=== PATIENT | female | born 1950 | race Caucasian/White ===

== ENCOUNTER 2025-06-04 13:41 | Inpatient (IN) | payer MEDICARE ==
[2025-06-02 12:16] LABS: MEAN PLATELET VOLUME 8.7 FL (7.4-10.4); PRE OP HEMATOCRIT 46.6 % (35.0-45.0); PRE OP HEMOGLOBIN 14.6 g/dL (12.0-16.0); PRE OP PLATELET COUNT 365 X10'3 (140-440); PRE OP WHITE BLOOD COUNT 9.4 10'3 (4.8-10.8); RED CELL DISTRIBUTION WIDTH 25.0 % (11.5-14.5)
[2025-06-02 12:31] LABS: CREATININE 1.72 MG/DL (0.40-0.90); PRE OP ALT 18 U/L (30-65); PRE OP ANION GAP 9 (8-16); PRE OP AST 35 U/L (10-37); PRE OP BILIRUB, TOTAL 0.7 MG/DL (0.0-1.0); PRE OP GLUCOSE 111 MG/DL (70-104); PRE OP POTASSIUM 4.2 MMOL/L (3.4-5.1); PRE OP SODIUM 141 MMOL/L (135-145); TOTAL CARBON DIOXIDE 29.1 MMOL/L (24-32); eGFR 29 ML/MIN
[~2025-06-04] VITALS: Ht 175.3 cm; Wt 101.4 kg
[2025-06-04] MEDS: ceFAZolin 2gm/dext,iso 50mL 50 ML IV ONE (05:30)
[2025-06-04] MEDS: VANCOMYCIN/H2O 1.5g/300mL PB 300 ML IV ONE (05:30)
[~2025-06-04 13:41] MED LIST: ATOR10TA87 PO; CHOL200080 PO; DOXY-224 PO; FENO145T38 PO; FLUT1BLS10 IH; FURO-150 PO; HYDR-3973 PO; INSU100I52 SQ; LACT1CAP75 PO; METF-900 PO; METO-395 PO; MIDO5TAB4 PO; NALO0.4D3 NAS; RIVA15TA PO; SERT25TA PO
[2025-06-04 13:53] VITALS: BP 132/64; PULSE 90; RESP 17; TEMP 97.8; O2SAT 95
[2025-06-04] MEDS: ringers solution, lacted 1,000 ML IV SCH (14:42)
[2025-06-04 14:45] LABS: ISTAT ANION GAP 9.0 (8-12); ISTAT BUN 20.0 mg/dL (7-18); ISTAT CL 100.0 mmol/L (99-107); ISTAT CREATININE 1.1 mg/dL (0.6-1.1); ISTAT GLUCOSE 65.0 mg/dL (70-104); ISTAT HGB 16.3 g/dl (12.0-16.0); ISTAT Hct 48.0 %PCV (35-45); ISTAT IONIZED CALCIUM 1.16 mmol/L (1.03-1.32); ISTAT K 3.8 mmol/L (3.5-5.1); ISTAT NA 139.0 mmol/L (135-145); ISTAT TOTAL CO2 30.0 mmol/L (24-32); ISTAT eGFR 48.0 ML/MIN; POC BUN/CREATININE RATIO 18.2 (6.6-38.0)
[2025-06-04] MEDS ORDERED: vancomycin 1,000mg inj ONE (15:28)
[2025-06-04] MEDS ORDERED: vancomycin inj 1,000 MG in normal saline 250ml IV soln 250 ML IV ONE (17:00)
[2025-06-04] MEDS ORDERED: magnesium sulf-water 4G/100mL 100 ML IV PRN (17:00)
[2025-06-04] MEDS ORDERED: potassium Cl 40MEQ/1/2NS 520ml 520 ML IV PRN (17:00)
[2025-06-04] MEDS ORDERED: HYDROmorphone inj. 0.5 MG/0.5 ML DISP.SYRIN IV PRN (17:00)
[2025-06-04] MEDS ORDERED: bisacodyl 10mg suppository rectal RC PRN (17:00)
[2025-06-04] MEDS ORDERED: HYDROcodone/acetaminophen 5mg/325mg tablet PO PRN (17:00)
[2025-06-04] MEDS ORDERED: DEXTROSE 15 GM of carb/4 tabs (each vial/BOTTLE has 4 tablets) PO PRN ×2 (17:00)
[2025-06-04] MEDS ORDERED: potassium Cl 20 mEq SR tablet PO PRN ×2 (17:00)
[2025-06-04] MEDS ORDERED: magnesium sulf-water 2g/50mL 50 ML IV PRN (17:00)
[2025-06-04] MEDS ORDERED: ondansetron/PF 4mg/2ml inj IV PRN (17:00)
[2025-06-04] MEDS ORDERED: glucagon, human recombinant 1mg kit SUBCUT PRN (17:00)
[2025-06-04] MEDS ORDERED: dextrose 50%-water 50ml dispensing syringe IV PRN ×2 (17:00)
--- NOTE | 2025-06-04 17:20 | HISTORY AND PHYSICAL ---
History & Physical Providers to CC ~ History of Present Illness Reason for Admit\Complaint: Right hip infection History of Present Illness This is a 75-year-old female who had a proximally one year history of intermittent infections of the right hip- three years ago she has a total hip arthroplasty and since then she has had multiple revisions she was hospitalized here the end of March in the beginning of April with a a hip infection and had a extensive debridement decompression of the abscess and removal of infected hip arthroplasty both femoral and acetabular components and antibiotic spacers were placed. The patient currently is being admitted as per request of orthopedic surgeon Dr. Edvin singh for a revision and removal and replacement of the antibiotic spacers. The patient is on dialysis Monday. Monday, Monday I did communicate with on-call clinical exercise physiologist Dr. phillip and to coordinate when the patient will get their Monday dialysis treatments. The patient has atrial fibrillation and takes Xarelto for DVT and stroke prophylaxis which will be held for upcoming surgery on Monday. The patient has no acute complaints Allergies: Coded Allergies: procaine (Verified Allergy, Intermediate, 06/03/25) Sulfa (Sulfonamide Antibiotics) (Verified Allergy, Unknown, 06/03/25) avocado (Unverified Allergy, Unknown, 03/27/25) allergy per pt codeine (Unverified Allergy, Unknown, 03/25/25) grape (Unverified Allergy, Unknown, 03/27/25) rash per pt Uncoded Allergies: NOVACAINE (Allergy, Intermediate, 06/03/25) Home Medications Home Medications Active Reported Probiotic (Lactobacillus Combo No.10) 20 Billion Cell Capsule 1 Tab PO DAILY Vitamin D3 (Cholecalciferol (Vitamin D3)) 50 Mcg (2000 Unit) Capsule 1 Cap PO DAILY Midodrine HCl Unknown Strength Tablet Unknown Dose PO Q8H Metoprolol Succinate Unknown Strength Tab.sr.24h Unknown Dose PO DAILY Doxycycline Hyclate 100 Mg Capsule 1 Cap PO BID Insulin Aspart Flexpen (Insulin Aspart) 100 Unit/Ml (3 Ml) Insuln.pen 0 SQ ACHS SLIDING SCALE Wixela 250-50 Inhub (Fluticasone Propion/Salmeterol) 250 Mcg-50 Mcg/Dose Blst.w.dev 1 Puff IH Q12H Zoloft* (Sertraline HCl) 25 Mg Tablet 200 Mg PO DAILY 30 Days Xarelto (Rivaroxaban) 15 Mg Tab 1 Tab PO DAILY 30 Days Naloxone HCl 0.4 Mg/Ml Syringe 1 Spr OBED Q2-3 MIN PRN 2 Days Metformin ER* (Metformin HCl) 500 Mg Tab.sr.24h 2 Tab PO DAILY 30 Days Hydrocodone-Apap 10-325 Tablet (Acetaminophen/Hydrocodone Bitart) 10mg/325mg Tablet 1 Tab PO Q12H PRN PRN 5 Days Lasix* (Furosemide) 20 Mg Tablet 1 Tab PO DAILY 30 Days Tricor* (Fenofibrate) 145 Mg Tablet 1 Tab PO DAILY 30 Days Lipitor* (Atorvastatin Calcium) 10 Mg Tablet 1 Tab PO DAILY 30 Days Past Medical History Past Medical History Scoliosis, chronic stage IV renal failure on dialysis Monday, COPD, sleep apnea, atrial fibrillation, diabetes mellitus type 2 Past Surgical History Surgical History Comment Uvuloplasty for sleep apnea, multiple right hip surgeries, right total shoulder replacement, hysterectomy Family History Family History: FH: bipolar disorder FH: heart failure FH: uterine cancer Past Social History Social History Comment Lifelong nonsmoker, does not drink alcohol or use illicit drugs. Full code status ROS ROS Except for positives in the HPI the rest of the 14 point review systems is negative Exam Vitals: Vital Signs Date Time Temp Pulse Resp B/P (MAP) Pulse Ox O2 Delivery O2 Flow Rate FiO2 06/04/25 13:53 97.8 90 17 132/64 (86) 95 Nasal Cannula 4.0 General: Gen. No acute distress alert and oriented 4 Lungs clear to ascultation bilaterally, no wheezes rales or rhonchi appreciated Heart normal sinus rhythm no murmurs rubs or clicks noted Abdomen soft nontender bowel sounds are normoactive Lower extremities no clubbing cyanosis, nor edema appreciated bilaterally Diagnostic Data Last Recorded Lab Results: 06/02/25 1206 06/02/25 1206 Advance Care Planning Advanced Care plannin - 30 Minutes Problems: (1) Septic joint Status: Acute Additional Plan # septic right hip joint Prior arthroplasty with multiple revisions an antibiotic spacer was placed Dr. Edvin singh orthopedic surgeon is taking the patient on Monday for removal of the antibiotic spacers and replacement IV vancomycin IV Rocephin. # permanent atrial fibrillation Awaiting confirmation the patient has metoprolol dose Xarelto was held since the patient is having surgery Monday # dialysis patient received dialysis today Received dialysis today I sent a text message to Dr. Phillip that the patient is here and to coordinate for dialysis on Monday # [id number] diabetes mellitus hyper and hypoglycemic protocol # COPD Currently on 3 L of oxygen DuoNeb Albuterol neb # DVT prophylaxis SQ heparin I spent a total of 17 minutes on reviewing various resuscitative measures/ ACP with the patient at the time of admission. The patient has decided on full code status Date of Service: Jun 04, 2025 Billing Provider: RICKIE PENA DO Common Visit Codes: [id number] INP/OBS CARE (HIGH) Secondary Visit Codes: [id number] CARE PLAN 30 MINUTES RICKIE PENA DO Jun 04, 2025 17:20
[2025-06-04 19:00] VITALS: BP 131/69; PULSE 89; RESP 16; TEMP 97; O2SAT 99
[2025-06-04] MEDS: INSULIN LISPRO 100 UNIT/ML INSULN.PEN MULTI-DOSE SQ SCH (19:29)
[2025-06-04] MEDS: K and/or MAG REPLACEMENT MC SCH (20:00)
[2025-06-04] MEDS: vancomycin inj. 750 MG in normal saline 250ml IV soln 250 ML IV SCH (20:44)
[2025-06-04] MEDS: heparin, porcine 5000 units/ml vial SQ SCH (20:45)
[2025-06-04] MEDS: docusate sod 100mg capsule PO SCH (20:45)
[2025-06-04 22:00] VITALS: BP 119/69; PULSE 91; RESP 16; TEMP 97.7; O2SAT 98
[2025-06-05] MEDS: HYDROcodone/acetaminophen 10/325mg tab PO PRN (05:22)
[2025-06-05 05:48] LABS: MEAN PLATELET VOLUME 8.7 FL (7.4-10.4); RED CELL DISTRIBUTION WIDTH 24.9 % (11.5-14.5)
[2025-06-05 06:00] VITALS: BP 131/81; PULSE 83; RESP 18; TEMP 97.8; O2SAT 95
[2025-06-05 06:13] LABS: CREATININE 1.25 MG/DL (0.40-0.90); TOTAL CARBON DIOXIDE 31.1 MMOL/L (24-32); eCRCL 39 ML/MIN; eGFR 42 ML/MIN
[2025-06-05] MEDS: lactobacillus rhamnosus 10,000 MMU CELLS/CAPSULE PO SCH (09:04)
[2025-06-05] MEDS: CefTRIAXone/D5W-Rocephin 1gm 50 ML IV SCH (09:04)
[2025-06-05] MEDS: cholecalciferol (vitamin D3) 1,000 unit (25mcg) tablet PO SCH (09:05)
[2025-06-05 10:00] VITALS: BP 137/70; PULSE 97; RESP 16; TEMP 98; O2SAT 95
[2025-06-05] MEDS: vancomycin/NS 1 GM ADD-VANTAGE 250 ML IV SCH (10:56)
--- NOTE | 2025-06-05 11:32 | CONSULTATION REPORT - RESIDENT ---
Consult Providers to CC Resident Creating Document: ROSHNI CROCKETT RES History of Present Illness Reason for Admit\Complaint: Hip revision surgery History of Present Illness This is a 75-year-old female with longstanding DM II diagnosed at age 36, ARIELLA on nighttime BiPAP, and multiple orthopedic procedures including right hip arthroplasty with several revisions due to recurrent dislocations. 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 She underwent extensive debridement and removal of the infected prosthesis with of antibiotic spacers. During that hospitalization, she developed acute kidney injury with progressive rise in creatinine and was initiated on hemodialysis. She is currently residing at [facility] and receives hemodialysis 3 times weekly (Monday, Monday, Monday), with her last session completed yesterday. She is scheduled for right hip revision surgery tomorrow at 9:[address] Hope and is currently on vancomycin and ceftriaxone. Prior to her recent hospitalization, she was ambulatory with a walker. She now has difficulty ambulating and requires assistance. She has urinary incontinence and uses PureWick. On evaluation today, sodium is 139, potassium 3.8, bicarbonate 31.1, creatinine 1.25 (lowest since 04/02), and hemoglobin A1c 5.8. Overnight urine output was 600 mL, with only 150 mL produced since this morning. Allergies: Coded Allergies: egg (Verified Allergy, Intermediate, hives, 06/05/25) procaine (Verified Allergy, Intermediate, 06/03/25) Sulfa (Sulfonamide Antibiotics) (Verified Allergy, Unknown, 06/03/25) avocado (Unverified Allergy, Unknown, 03/27/25) allergy per pt codeine (Unverified Allergy, Unknown, 03/25/25) grape (Unverified Allergy, Unknown, 03/27/25) rash per pt Uncoded Allergies: NOVACAINE (Allergy, Intermediate, 06/03/25) Home Medications Home Medications Active Reported Probiotic (Lactobacillus Combo No.10) 20 Billion Cell Capsule 1 Tab PO DAILY Vitamin D3 (Cholecalciferol (Vitamin D3)) 50 Mcg (2000 Unit) Capsule 1 Cap PO DAILY Midodrine HCl Unknown Strength Tablet Unknown Dose PO Q8H Metoprolol Succinate Unknown Strength Tab.sr.24h Unknown Dose PO DAILY Doxycycline Hyclate 100 Mg Capsule 1 Cap PO BID Insulin Aspart Flexpen (Insulin Aspart) 100 Unit/Ml (3 Ml) Insuln.pen 0 SQ ACHS SLIDING SCALE Wixela 250-50 Inhub (Fluticasone Propion/Salmeterol) 250 Mcg-50 Mcg/Dose Blst.w.dev 1 Puff IH Q12H Zoloft* (Sertraline HCl) 25 Mg Tablet 200 Mg PO DAILY 30 Days Xarelto (Rivaroxaban) 15 Mg Tab 1 Tab PO DAILY 30 Days Naloxone HCl 0.4 Mg/Ml Syringe 1 Spr OBED Q2-3 MIN PRN 2 Days Metformin ER* (Metformin HCl) 500 Mg Tab.sr.24h 2 Tab PO DAILY 30 Days Hydrocodone-Apap 10-325 Tablet (Acetaminophen/Hydrocodone Bitart) 10mg/325mg Tablet 1 Tab PO Q12H PRN PRN 5 Days Lasix* (Furosemide) 20 Mg Tablet 1 Tab PO DAILY 30 Days Tricor* (Fenofibrate) 145 Mg Tablet 1 Tab PO DAILY 30 Days Lipitor* (Atorvastatin Calcium) 10 Mg Tablet 1 Tab PO DAILY 30 Days Past Medical History Past Medical History Diabetes type 2, sleep apnea, COPD, atrial fibrillation Past Surgical History Surgical History Comment Multiple orthopedic surgeries onto her right hip, knee surgeries, bladder surgery Family History Family History: FH: bipolar disorder FH: heart failure FH: uterine cancer Past Social History Social History Comment Patient was born with scoliosis, difficulty ambulating. She move to [place] just prior to last [place]. Now coming from [facility]. She used to live in [place]. She ambulates using walker, never smoked, consumed alcohol, or use recreational drugs. ROS ROS As stated above in the HPI, otherwise all systems are reviewed and negative. Exam Vitals: Vital Signs Date Time Temp Pulse Resp B/P (MAP) Pulse Ox O2 Delivery O2 Flow Rate FiO2 06/05/25 10:00 98.0 97 16 137/70 (92) 95 Room Air 06/04/25 22:00 2.0 General Appearance: Elderly obese female. Alert awake and oriented HEENT: Atraumatic, normocephalic, ADEN, EOMI. Normal oropharynx, moist oral mucosa. Neck: Trachea midline. Supple, normal ROM. No JVD, bruit, lymphadenopathy or masses, or other lesions. Respiratory: No wheezing or rhonchi Cardiac: Irregular heart rhythm no murmur, rub or gallop. Normal S1 and S2. GI: No tenderness. Abdomen symmetric, nondistended, soft, normal bowel sounds x4 quadrant normoactive. No guarding, no rebound or rigidity. No hepatosplenomegaly. No masses, no bruit, no flank pain bilaterally. Extremities: Swollen, mildly tender right hip extended down to her knee. Dressing applied. Missing right 5th toe Skin: Intact, dry, warm, no rashes or petechia. Neuro: Speech is clear, alert and oriented x4. No sensory or motor deficit, DTRs normal. Cranial nerves II to XII intact. Psych: Normal affect, good eye contact, no apparent hallucination, normal speech. Diagnostic Data Last Recorded Lab Results: 06/05/2545006/05/25450 Additional Plan End-stage renal disease On hemodialysis; Monday and Monday Developed SAMIRA during prior hospitalization for septic arthritis and has since been receiving HD Creatinine today is 1.25 with reduced urine output; 600 mL overnight, 150 mL since morning Monitor for signs of volume overload or uremia postoperatively Given dialysis dependence, and a reduced urine output, careful fluid balance is critical, both prabhu and postoperatively. Preop dialysis is scheduled tomorrow at 4;30 AM. Prosthetic joint infection Underwent extensive debridement and placement of antibiotic spacer Currently on vancomycin and ceftriaxone Monitor WBC inflammatory markers, and culture Being managed by Ortho and hospitalist team Diabetes type 2 Hyperglycemia/hypoglycemia protocol in place A1c is 5.8 Urine incontinence On PureWick Monitor for skin integrity and signs of UTI Continue current management Atrial fibrillation; no RVR Xarelto withheld due to upcoming surgery Obstructive Sleep Apnea BiPAP at night. Perfusing well while breathing ambient air. DVT prophylaxis: SubQ heparin Roshni Crockett Nephrology Resident Date of Service: Jun 05, 2025 Billing Provider: RADHA MCKINNEY III, SHAMS, RES Jun 05, 2025 11:32
[2025-06-05] MEDS: ARGININE/GLUTAMINE/CALCIUM BMB (JUVEN 19.3GM PKT) 1 EACH POWD.PACK PO SCH (12:30)
--- NOTE | 2025-06-05 15:33 | PROGRESS NOTE ---
Daily Progress Note Providers to CC ~ Antibiotic Timeout Antibiotic Ordered?: Yes Subjective The patient is doing relatively well- was questioning when her next dialysis treatment is she is on Monday schedule and had dialysis yesterday. The patient is scheduled to have removal and replacement of right hip antibiotic spacer with beads with Dr. Hope at 9:00 a.m. and dialysis has been scheduled for 4:30 a.m. Objective Vital Signs Date Time Temp Pulse Resp B/P (MAP) Pulse Ox O2 Delivery O2 Flow Rate FiO2 06/05/25 10:00 98.0 97 16 137/70 (92) 95 Room Air 06/04/25 22:00 2.0 Result Diagram: 06/05/2545006/05/25 045 Gen. No acute distress alert and oriented 4 Lungs clear to ascultation bilaterally, no wheezes rales or rhonchi appreciated Heart normal sinus rhythm no murmurs rubs or clicks noted Abdomen soft nontender bowel sounds are normoactive Lower extremities no clubbing cyanosis, nor edema appreciated bilaterally Problem\Assessment\Plan Problems/Diagnosis: (1) Septic joint # septic right hip joint Prior arthroplasty with multiple revisions an antibiotic spacer was placed Dr. Edvin hope orthopedic surgeon is taking the patient to the OR tomorrow morning at 09:00 IV vancomycin IV Rocephin. # permanent atrial fibrillation Awaiting confirmation the patient has metoprolol dose Xarelto was held since the patient is having surgery Monday # dialysis patient received dialysis today Received dialysis today Evaluated by Nephrology today in his scheduled for an dialysis at 4:30 a.m. # [id number] diabetes mellitus hyper and hypoglycemic protocol # chronic COPD not in acute exacerbation # chronic respiratory failure on 3 L oxygen at baseline Currently oxygen saturation is 95% on room air DuoNeb Albuterol neb Disposition: Will likely require rehab postop surgery is scheduled tomorrow morning 06/06/2025 at 09:00 Date of Service: Jun 05, 2025 Billing Provider: RICKIE PENA DO Common Visit Codes: [id number] INP/OBS CARE(HIGH) RICKIE PENA DO Jun 05, 2025 15:32
[2025-06-05 18:30] VITALS: BP 132/70; PULSE 83; RESP 21; TEMP 97.1; O2SAT 98
[2025-06-05 22:00] VITALS: BP 132/87; PULSE 88; RESP 20; TEMP 97.3; O2SAT 94
[2025-06-06] VITALS (25 sets, daily range): BP systolic 93–130; BP diastolic 45–76; PULSE 79–114; RESP 14–25; TEMP 97.1–98.4; O2SAT 96–100
[2025-06-06] MEDS ORDERED: albumin (human) 25% 100ml IV 100 ML IV PRN (04:30)
[2025-06-06 05:05] LABS: MEAN PLATELET VOLUME 8.4 FL (7.4-10.4); RED CELL DISTRIBUTION WIDTH 25.1 % (11.5-14.5)
[2025-06-06 05:32] LABS: CREATININE 1.31 MG/DL (0.40-0.90); PHOSPHORUS 3.0 MG/DL (2.3-4.5); TOTAL CARBON DIOXIDE 29.4 MMOL/L (24-32); eCRCL 38 ML/MIN; eGFR 39 ML/MIN
[2025-06-06] MEDS: heparin 1,000 units/ml 10ml inj HE ONE ×2 (06:40→06:41)
[2025-06-06] MEDS ORDERED: vancomycin 1,000mg inj ONE ×2 (08:43→10:16)
[2025-06-06 09:33] LABS: CREATININE 0.99 MG/DL (0.40-0.90); TOTAL CARBON DIOXIDE 27.1 MMOL/L (24-32); eCRCL 50 ML/MIN; eGFR 54 ML/MIN
[2025-06-06] MEDS ORDERED: fentaNYL /PF 50mcg/ml 5ml ampule ONE (10:09)
[2025-06-06] MEDS ORDERED: midazolam 1 mg/ML 2ml injection ONE (10:09)
[2025-06-06] MEDS ORDERED: propofol inj 20 ML IV ONE (10:10)
[2025-06-06] MEDS ORDERED: rocuronium 10mg/ml inj IV ONE (10:10)
--- NOTE | 2025-06-06 10:12 | PROGRESS NOTE- Residence ---
Progress Note - Resident Providers to CC Resident Creating Document: ROSHNI CROCKETT RES ~ Antibiotic Timeout Antibiotic Ordered?: Yes Subjective Patient was seen and examined at bed side. She is scheduled for revision surgery by Dr. Hope today. We will monitor her volume status after the surgery and determine whether she needs additional HD or the scheduled HD. Will re-evaluate her tomorrow. Objective Vital Signs Date Time Temp Pulse Resp B/P (MAP) Pulse Ox O2 Delivery O2 Flow Rate FiO2 06/06/25 07:10 97.4 87 16 108/69 (82) 96 Nasal Cannula 2.0 06/06/25 07:00 28 General Appearance: Elderly obese female. Alert awake and oriented Respiratory: No wheezing or rhonchi Cardiac: Irregular heart rhythm no murmur, rub or gallop. Normal S1 and S2. GI: No tenderness. Abdomen symmetric, nondistended, soft, normal bowel sounds x4 quadrant normoactive. No guarding, no rebound or rigidity. No hepatosplenomegaly. No masses, no bruit, no flank pain bilaterally. Extremities: Swollen, mildly tender right hip extended down to her knee. Dressing applied. Missing right 5th toe Skin: Intact, dry, warm, no rashes or petechia. Neuro: Speech is clear, alert and oriented x4. No sensory or motor deficit, DTRs normal. Cranial nerves II to XII intact. Psych: Normal affect, good eye contact, no apparent hallucination, normal speech. Result Diagram: 06/06/25 0410 06/06/25 0911 Advance Care Planning Advanced Care plannin - 30 Minutes Assessment Assessment This is a 75-year-old female with longstanding DM II diagnosed at age 36, ARIELLA on nighttime BiPAP, and multiple orthopedic procedures including right hip arthroplasty with several revisions due to recurrent dislocations. 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 She underwent extensive debridement and removal of the infected prosthesis with of antibiotic spacers. During that hospitalization, she developed acute kidney injury with progressive rise in creatinine and was initiated on hemodialysis. Plan Plan End-stage renal disease On hemodialysis; Monday and Monday Developed SAMIRA during prior hospitalization for septic arthritis and has since been receiving HD Creatinine today0.99 Monitor for signs of volume overload or uremia postoperatively; will reevaluate her tomorrow Given dialysis dependence, and a reduced urine output, careful fluid balance is critical, both prabhu and postoperatively. Undergone dialysis early this morning (prior to surgery) Prosthetic joint infection Underwent extensive debridement and placement of antibiotic spacer Currently on vancomycin and ceftriaxone Monitor WBC inflammatory markers, and culture Being managed by Ortho and hospitalist team Undergoing surgery today Diabetes type 2 Hyperglycemia/hypoglycemia protocol in place A1c is 5.8 Urine incontinence On PureWick Monitor for skin integrity and signs of UTI Continue current management Atrial fibrillation; no RVR Xarelto withheld due to upcoming surgery Obstructive Sleep Apnea BiPAP at night. Perfusing well while breathing ambient air. DVT prophylaxis: SubQ heparin Roshni Crockett Nephrology Resident Date of Service: Jun 06, 2025 Billing Provider: RADHA MCKINNEY III DO ROSHNI CROCKETT, RES Jun 06, 2025 10:12
[2025-06-06] MEDS ORDERED: tobramycin sulfate 1.2gm vial ONE (10:16)
[2025-06-06] MEDS ORDERED: HYDROmorphone/PF 0.2 MG/ML SYRINGE IV PRN ×2 (12:25)
[2025-06-06] MEDS ORDERED: acetaminophen 1,000mg/100ml IV 100 ML IV PRN (12:25)
[2025-06-06] MEDS: ringers solution, lacted 1,000 ML IV SCH (12:25)
[2025-06-06] MEDS ORDERED: ondansetron/PF 4mg/2ml inj IV PRN (12:25)
[2025-06-06] MEDS ORDERED: labetalol 20mg/4ml (5mg/ml) syringe IV PRN (12:25)
[2025-06-06] MEDS ORDERED: hydrALAZINE 20mg/ml inj. IV PRN (12:25)
--- NOTE | 2025-06-06 13:35 | RADIOLOGY REPORT ---
CLINICAL INDICATION: INTRA OP RIGHT HIP TECHNIQUE: 3 intraoperative views of the right hip were performed. DI HIP, 1 VIEW WITH PELVIS Comparison: DI HIP UNILATERAL 2 VIEWS on DOS: 03/28/25, CT CT PELVIS W/ IV CONTRAST on DOS: 03/25/25 FINDINGS/IMPRESSION: Intraoperative views of the right hip demonstrate femoral and acetabular sizing components, and parti ally-visualized right femoral shaft plate and screw fixation.
[2025-06-06] MEDS ORDERED: albumin (Human) 5% 250ml 250 ML IV ONE (13:43)
--- NOTE | 2025-06-06 14:18 | OPERATIVE REPORT ---
Operative Report Providers to ~ Date of Procedure: Jun 06, 2025 Pre-Operative Diagnosis: Right hip infection Post-Operative Diagnosis Status post stage I revision arthroplasty with antibiotic spacers for right infected total hip arthroplasty failed acetabular component requiring revision Procedure Performed Incision drainage removal of displaced and dislocated acetabular component this is an antibiotic impregnated acetabular implant debridement placement of a 2nd L poly liner with antibiotic impregnated PMMA with some retention screws this is a constrained component. Placement of antibiotic beads placement of a wound Hemovac drain Surgeon: Edvin Zelaya MD Charter Coordinator None Anesthesiologist: Jared Meng Type of Anesthesia: General Findings: Patient was found to have no apparent infection and cultures were negative for white blood cells and organisms. Patient was found to have a dislocated the acetabular antibiotic impregnated component that escaped superiorly and posteriorly with some of bone loss and greater trochanteric avulsion. Complications None Prosthetics\Implants used: Two New Century cancellous screws 6-1/2 mm x 25 mm. Biolox ceramic 1.5 36 mm diameter femoral head. A New Century polyethylene constrained acetabular liner 10 degree plus four. Antibiotic impregnated polymethylmethacrylate. Antibiotic beads. Estimated Blood Loss: 0 300 mL Specimen Removed: Greater trochanteric bone fragment and heterotopic bone formation. Acetabular liner with antibiotic cement attached to it was displaced ilodged next two the superior iliac wing Description of Procedure: This patient was taken to the operating room as soon as operative time was allowed as she was found to have and follow up from her previous procedure which was a stage I debridement placement of antibiotic spacers for infected total hip arthroplasty she was found to have and the rehabilitation facility a change in position of her leg with a flexion inch leg shortening and internal rotation contracture. X-rays revealed a acetabular antibiotic acetabular liner add displaced with the ice cement superiorly causing and posteriorly causing this rotational and shortening contracture of her hip. Patient was having minimal to no drainage from her hip incision. I discussed with the patient the treatment options and she was willing to go for a 2nd procedure to try reestablish her hip in prep for proper position and checked for any residual infection this would require removal of the displaced and dislocated acetabular liner and if possible re fixation with a new acetabular liner was cement into the acetabulum. I obtained informed consent signed her right hip. She was now taken to the operating room after given prop hylactic antibiotics given a general anesthetic placed in a left lateral decubitus position and held in this position with a hip citrix architect system. The hip was prepped and draped in usual sterile orthopaedic fashion. There was a significant leg shortening and internal rotation contracture the hip was very stiff. After a prepped and draped have been completed surgical time-out was taken and the case began. Previous incision was used and inside the stent. No necrotic tissue or exudate was encountered. Cultures were taken and were found to have no white blood cells or organisms. Debridement and exposure of the implant was accomplished I went with a direct lateral position was allowed me both posterior as well as anterior access. When dissecting around the proximal and became apparent that there was an avulsion off of the greater trochanter was occurred at the time of her dislocation this was the quality this bone was very soft and not repairable this was debrided was a fairly significant chunk of either heterotopic bone portion of her acetabular rim superiorly as well this is again very poor bone quality would not benefit this patient would not allow for fixation so this was debrided as well. The true acetabulum then was exposed with retractors with anteriorly and posteriorly and reamed with 56 and then 58 Reamer under fluoroscopic guidance x-ray reviewed. I placed 225 mm 6-1/2 mm diameter screws into the superior anterior and superior lateral quadrant encourage use cement fixation cancellous bone in the acetabulum was copiously irrigated and evacuated of bleeding and a definitive 56 mm left liner was placed into the depths of the acetabulum after acetabulum night and feel the cement pain all excess cement was removed and we allowed 15 minutes to for the cement to fix the component components seem quite stable allowing a reduction of the proximal femur with a new 1.5 mm neck length 36 mm diameter ceramic femoral head the reduction was stable and x-rays confirmed acceptable alignments in improvement in her leg lengths. All hemostasis was achieved throughout the case with electrocautery. Pulsatile irrigation of antibiotic normal saline with Ancef 3 L was used and 3 L of antiseptic solution used during the case for debridement One package of antibiotic beads was placed into the depths of the wound. Layer closure using 1. Prolene and number 2-0 Prolene was accomplished to minimize disc space a Hemovac was also placed to close suction exiting distally and laterally. The hip was taken through a range of motion significant improvement in leg position was accomplished this did require release of the iliopsoas skeletonizing the proximal femur. The skin was closed with a tension band sutures central aspect of the incision however the greater trochanter these simple sutures and tension band fashion the proximal and distal thirds of the incision were closed with skin mara silver dressing abduction ABD pad abduction pillow was applied dressings were held in position with op-site dressing. The patient's was placed in the hip wrap transferred to the [facility] room in stable condition after the abduction pillow was applied the patient was found to have good distal pulses and capillary refill and no apparent perioperative complications. Surgical time was approximately 3 hours Counts repoted as correct: Yes EDVIN ZELAYA MD Jun 06, 2025 14:18
--- NOTE | 2025-06-06 14:54 | RADIOLOGY REPORT ---
CLINICAL INDICATION: Postop Technique: 1 view of the pelvis was obtained. Comparison: DI HIP, 1 VIEW WITH PELVIS on DOS: 06/06/25, DI HIP UNILATERAL 2 VIEWS on DOS: 03/28/25, CT CT PELVIS W/ IV CONTRAST on DOS: 03/25/25 FINDINGS/IMPRESSION: Postsurgical changes from right hip arthroplasty. Wallace catheter projects over the bladder. 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
[2025-06-06] MEDS: morphine 4 MG/ML inj SYRINge IV PRN (15:48)
--- NOTE | 2025-06-06 16:26 | PROGRESS NOTE ---
Daily Progress Note Providers to CC ~ Antibiotic Timeout Antibiotic Ordered?: Yes Subjective No new complaints, patient is seen resting comfortably Objective Vital Signs Date Time Temp Pulse Resp B/P (MAP) Pulse Ox O2 Delivery O2 Flow Rate FiO2 06/06/25 16:03 Room Air 2.0 28 06/06/25 15:15 97.4 95 16 98/45 (62) 98 Result Diagram: 06/06/25 0410 06/06/25 0911 Gen. awake alert oriented asymptomatic HEENT: Normocephalic, atraumatic, extraocular movements are intact, sclera anicteric, conjunctiva pinkish, moist oral mucosa, no rash or ulcers. NECK: Supple, no JVD, trachea midline. CHEST: Clear to auscultation, no wheezes crackles or rhonchi. TDC in the right side of the chest HEART: Regular rate rhythm, no murmur gallop or rub. ABDOMEN: Soft, nontender, no organomegaly. EXTREMITIES: No cyanosis clubbing or edema. NEURO EXAM: Grossly nonfocal. MUSCULOSKELETAL : Limited movement of the right hip. Patient noted to have a drain SKIN: No rash or ulcers noted. Other Results Medications reviewed Problem\Assessment\Plan Problems/Diagnosis: (1) Septic joint # septic right hip joint Prior arthroplasty with multiple revisions an antibiotic spacer was placed. Patient underwent incision, drainage removal of the displaced and dislocated acetabular component and placement of antibiotic beads and Hemovac drain. Continue IV vancomycin and IV Rocephin. # permanent atrial fibrillation: Anticoagulation on hold due to her surgery # end-stage renal disease, on hemodialysis # zdw-qyhdwor-cfjismyfe diabetes mellitus: hyper and hypoglycemic protocol # chronic COPD not in acute exacerbation: Inhaled bronchodilators as needed # chronic respiratory failure on 3 L oxygen at baseline Disposition: Will likely require rehab Sepsis Screening Skin Color: Normal Date of Service: Jun 06, 2025 Billing Provider: FRITZ LOPEZ MD Common Visit Codes: [id number] INP/OBS CARE(HIGH) FRITZ LOPEZ MD Jun 06, 2025 16:26
[2025-06-06] MEDS: VANCOMYCIN LEVEL IV ONE (21:32)
[2025-06-07 02:00] VITALS: BP 94/54; PULSE 67; RESP 17; TEMP 97.7; O2SAT 94
[2025-06-07 05:57] LABS: MEAN PLATELET VOLUME 9.1 FL (7.4-10.4); RED CELL DISTRIBUTION WIDTH 25.5 % (11.5-14.5)
[2025-06-07 06:00] VITALS: BP 107/54; PULSE 101; RESP 17; TEMP 97.1; O2SAT 99
[2025-06-07 06:39] LABS: CREATININE 1.28 MG/DL (0.40-0.90); PHOSPHORUS 3.6 MG/DL (2.3-4.5); TOTAL CARBON DIOXIDE 25.0 MMOL/L (24-32); eCRCL 38 ML/MIN; eGFR 40 ML/MIN
[2025-06-07 10:00] VITALS: BP 104/57; PULSE 102; RESP 13; TEMP 97.9; O2SAT 99
--- NOTE | 2025-06-07 12:03 | PROGRESS NOTE ---
Daily Progress Note Providers to CC ~ Antibiotic Timeout Antibiotic Ordered?: Yes If Yes, Indications: Vancomycin and Rocephin , septic arthirits Subjective No new complaints, patient is seen resting comfortably, denies nausea or vomiting Objective Vital Signs Date Time Temp Pulse Resp B/P (MAP) Pulse Ox O2 Delivery O2 Flow Rate FiO2 06/07/25 10:00 97.9 102 13 104/57 (73) 99 Nasal Cannula 2.0 06/06/25 16:03 28 Result Diagram: 06/07/2544906/07/25449 Gen. awake alert oriented asymptomatic HEENT: Normocephalic, atraumatic, extraocular movements are intact, sclera anicteric, conjunctiva pinkish, moist oral mucosa, no rash or ulcers. NECK: Supple, no JVD, trachea midline. CHEST: Clear to auscultation, no wheezes crackles or rhonchi. TDC in the right side of the chest HEART: Regular rate rhythm, no murmur gallop or rub. ABDOMEN: Soft, nontender, no organomegaly. EXTREMITIES: No cyanosis clubbing or edema. NEURO EXAM: Grossly nonfocal. MUSCULOSKELETAL : Limited movement of the right hip. Patient noted to have Hemovacc SKIN: No rash or ulcers noted. Other Results Medications reviewed Problem\Assessment\Plan Problems/Diagnosis: (1) Septic joint # septic right hip joint :Patient has had a prior arthroplasty with multiple revisions an antibiotic spacer was placed. Patient underwent incision, drainage removal of the displaced and dislocated acetabular component and placement of antibiotic beads and Hemovac drain. Continue IV vancomycin and IV Rocephin. # permanent atrial fibrillation: Anticoagulation on hold due to her recent surgery # End-stage renal disease, on hemodialysis # Fjc-stwfcqg-fsctglxal diabetes mellitus: hyper and hypoglycemic protocol # Chronic COPD not in acute exacerbation: Inhaled bronchodilators as needed # Chronic respiratory failure on 3 L oxygen at baseline # Anemia likely of chronic disease : Monitor H/H # Disposition: Will likely require rehab Sepsis Screening Skin Color: Normal Date of Service: Jun 07, 2025 Billing Provider: FRITZ LOPEZ MD Common Visit Codes: [id number] INP/OBS CARE(HIGH) FRITZ LOPEZ MD Jun 07, 2025 12:03
--- NOTE | 2025-06-07 14:45 | PROGRESS NOTE ---
Progress Note Dictate Providers to CC ~ Antibiotic Ordered?: Yes Subjective Subjective She reports no specific concerns, pain minimal, nurses report no new events since last evaluation Objective Vitals Vital Signs Date Time Temp Pulse Resp B/P (MAP) Pulse Ox O2 Delivery O2 Flow Rate FiO2 06/07/25 10:00 97.9 102 13 104/57 (73) 99 Nasal Cannula 2.0 06/06/25 16:03 28 alert, appears comfortable RRR w/o murmur, no JVD CTA B, no wheezes +BS, NT No edema Lab Results: 06/07/25 0450 06/07/25 0450 Other Results I & O 06/07/25 07:00 Intake Total 600 ml Output Total 2360 ml Balance -1760 ml Hemodialysis 500 ml Other 100 ml Output Urine Total 110 ml Drainage Total 250 ml Hemodialysis 2000 ml Problem\Assessment\Plan Additional Plan End-stage renal disease On hemodialysis; Monday and Monday Developed SAMIRA during prior hospitalization for septic arthritis and has since been receiving HD Monitor for signs of volume overload or uremia postoperatively, no indication for dialysis today Given dialysis dependence, and a reduced urine output, careful fluid balance is critical, both prabhu and postoperatively. Next dialysis scheduled for Monday Prosthetic joint infection Underwent extensive debridement and placement of antibiotic spacer, hip prosthesis yesterday without complications Currently prescribed vancomycin and ceftriaxone, monitor Vanco levels Monitor WBC inflammatory markers, and culture Being managed by Ortho and hospitalist team Diabetes type 2 Hyperglycemia/hypoglycemia protocol in place A1c is 5.8 Urine incontinence On PureWick Monitor for skin integrity and signs of UTI Continue current management Sepsis Screening Skin Color: Normal WALL,RADHA M III DO Jun 07, 2025 14:45
[2025-06-07 18:00] VITALS: BP 104/39; PULSE 56; RESP 56; TEMP 97.7; O2SAT 94
[2025-06-07 19:00] VITALS: RESP 19; O2SAT 94
[2025-06-07 22:00] VITALS: BP 104/39; PULSE 56; RESP 56; TEMP 97.7; O2SAT 94
[2025-06-08 06:00] VITALS: BP 106/58; PULSE 100; RESP 16; TEMP 97.4; O2SAT 92
[2025-06-08 07:00] VITALS: RESP 18; O2SAT 95
--- NOTE | 2025-06-08 07:06 | PROGRESS NOTE ---
Progress Note Dictate Providers to CC ~ Antibiotic Ordered?: Yes Subjective Subjective Doing well overnight, no new events reported by nursing staff, scheduled for dialysis tomorrow Objective Vitals Vital Signs Date Time Temp Pulse Resp B/P (MAP) Pulse Ox O2 Delivery O2 Flow Rate FiO2 06/08/25 10:03 18 06/08/25 06:00 97.4 100 106/58 (74) 92 Bi-pap/CPAP 06/07/25 19:00 2.0 06/06/25 16:03 28 Appears comfortable RRR w/o murmur CTA bilateral, no wheezes +BS, NT 1+ edema Lab Results: 06/08/25 0614 06/08/25 0614 Other Results I & O 06/08/25 07:00 Intake Total 800 ml Output Total 600 ml Balance 200 ml Intake Oral 800 ml Output Urine Total 450 ml Drainage Total 150 ml Problem\Assessment\Plan Additional Plan End-stage renal disease On hemodialysis; Monday and Monday schedule Developed SAMIRA during prior hospitalization for septic arthritis and has since been receiving iHD Monitor for signs of volume overload or uremia postoperatively, no indication for dialysis today Given dialysis dependence, and a reduced urine output, careful fluid balance is critical, both prabhu and postoperatively. Next dialysis scheduled for Monday, we will asses daily for additional need Prosthetic joint infection Underwent extensive debridement and placement of antibiotic spacer, hip prosthesis 06/06/25 without complications Currently prescribed vancomycin and ceftriaxone, monitor Vanco levels Monitor WBC inflammatory markers, and culture Being managed by Ortho and hospitalist team Diabetes type 2 Hyperglycemia/hypoglycemia protocol in place A1c is 5.8 Urine incontinence On PureWick Monitor for skin integrity and signs of UTI Continue current management Sepsis Screening Skin Color: Normal WALL,RADHA M III DO Jun 08, 2025 07:06
[2025-06-08 07:11] LABS: MEAN PLATELET VOLUME 8.7 FL (7.4-10.4); RED CELL DISTRIBUTION WIDTH 25.6 % (11.5-14.5)
[2025-06-08 07:42] LABS: PLATELET ESTIMATE NORMAL
[2025-06-08 07:43] LABS: ELLIPTOCYTES FEW
[2025-06-08 07:58] LABS: CREATININE 1.52 MG/DL (0.40-0.90); PHOSPHORUS 2.9 MG/DL (2.3-4.5); TOTAL CARBON DIOXIDE 21.2 MMOL/L (24-32); eCRCL 32 ML/MIN; eGFR 33 ML/MIN
[2025-06-08 10:00] VITALS: BP 112/60; PULSE 81; RESP 21; TEMP 97.8; O2SAT 96
--- NOTE | 2025-06-08 13:22 | PROGRESS NOTE ---
Daily Progress Note Providers to CC ~ Antibiotic Timeout Antibiotic Ordered?: Yes Subjective Patient has no new complaints, cousin who is also her caregiver is at her bedside. Objective Vital Signs Date Time Temp Pulse Resp B/P (MAP) Pulse Ox O2 Delivery O2 Flow Rate FiO2 06/08/25 10:03 18 06/08/25 06:00 97.4 100 106/58 (74) 92 Bi-pap/CPAP 06/07/25 19:00 2.0 06/06/25 16:03 28 Result Diagram: 06/08/25 0614 06/08/2514 Gen. awake alert oriented asymptomatic HEENT: Normocephalic, atraumatic, extraocular movements are intact, sclera anicteric, conjunctiva pinkish, moist oral mucosa, no rash or ulcers. NECK: Supple, no JVD, trachea midline. CHEST: Clear to auscultation, no wheezes crackles or rhonchi. TDC in the right side of the chest HEART: Regular rate rhythm, no murmur gallop or rub. ABDOMEN: Soft, nontender, no organomegaly. EXTREMITIES: No cyanosis clubbing or edema. NEURO EXAM: Grossly nonfocal. MUSCULOSKELETAL : Limited movement of the right hip. Patient noted to have Hemovacc SKIN: No rash or ulcers noted. 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 Patient underwent incision, drainage removal of the displaced and dislocated acetabular component and placement of antibiotic beads and Hemovac drain. Continue IV vancomycin and IV Rocephin. # permanent atrial fibrillation: Anticoagulation on hold due to her recent surgery . To be resumed per ortho recommendations. # End-stage renal disease, on hemodialysis ,Being followed by Dr. Phillip # Cqx-ywvroza-sytnkydid diabetes mellitus: hyper and hypoglycemic protocol # Chronic COPD not in acute exacerbation: Inhaled bronchodilators as needed # Chronic respiratory failure on 3 L oxygen at baseline # Anemia likely of chronic disease : Monitor H/H # Disposition: SNF when cleared by ortho Sepsis Screening Skin Color: Normal Date of Service: Jun 08, 2025 Billing Provider: FRITZ LOPEZ MD Common Visit Codes: [id number] INP/OBS CARE(HIGH) FRITZ LOPEZ MD Jun 08, 2025 13:22
[2025-06-08 15:09] LABS: HBSAG SCREEN Negative (Negative)
[2025-06-08] MEDS: NUT.TX.IMP.RENAL FXN,LAC-REDUC (Nepro) 237 ML VANILLA PO SCH (18:01)
[2025-06-08 19:00] VITALS: RESP 14; O2SAT 98
[2025-06-09] VITALS (11 sets, daily range): BP systolic 98–131; BP diastolic 48–76; PULSE 92–102; RESP 8–18; TEMP 97.6–98.2; O2SAT 91–99
[2025-06-09 06:08] LABS: MEAN PLATELET VOLUME 8.4 FL (7.4-10.4); RED CELL DISTRIBUTION WIDTH 25.3 % (11.5-14.5)
[2025-06-09 06:26] LABS: CREATININE 1.72 MG/DL (0.40-0.90); PHOSPHORUS 2.6 MG/DL (2.3-4.5); TOTAL CARBON DIOXIDE 25.8 MMOL/L (24-32); eCRCL 29 ML/MIN; eGFR 29 ML/MIN
[2025-06-09] MEDS ORDERED: albumin (human) 25% 100ml IV 100 ML IV PRN (08:35)
--- NOTE | 2025-06-09 09:02 | PROGRESS NOTE- Residence ---
Progress Note - Resident Providers to CC Resident Creating Document: ROSHNI GÓMEZ RES ~ Antibiotic Timeout Antibiotic Ordered?: Yes Subjective Patient was seen and examined at bed side. She is scheduled for revision surgery by Dr. Hope today. We will monitor her volume status after the surgery and determine whether she needs additional HD or the scheduled HD. Will re-evaluate her tomorrow. Objective Vital Signs Date Time Temp Pulse Resp B/P (MAP) Pulse Ox O2 Delivery O2 Flow Rate FiO2 06/09/25 05:57 18 06/08/25 19:00 98 Nasal Cannula 2.0 28 06/08/25 10:00 97.8 81 112/60 (77) General: Awake and Alert, no acute distress. Resp: Unlabored. Lungs clear to auscultation bilaterally. Heart: Regular Rate and rhythm, normal S1 and S2 without murmur, rub or gallop. Abdomen: Soft and non tender no organomegaly Extremities: 1+ edema. Skin: Warm and Dry. Result Diagram: 06/09/2552806/09/25528 Advance Care Planning Advanced Care plannin - 30 Minutes Assessment Assessment This is a 75-year-old female with longstanding DM II diagnosed at age 36, ARIELLA on nighttime BiPAP, and multiple orthopedic procedures including right hip arthroplasty with several revisions due to recurrent dislocations. She was admitted to [facility] on March 25, 2025, with sepsis secondary to a suspected prosthetic joint infection. She underwent extensive debridement and removal of the infected prosthesis with of antibiotic spacers. During that hospitalization, she developed acute kidney injury with progressive rise in creatinine and was initiated on hemodialysis. Plan Plan End-stage renal disease On hemodialysis; Monday and Monday schedule Developed SAMIRA during prior hospitalization for septic arthritis and has since been receiving iHD Monitor for signs of volume overload or uremia postoperatively, no indication for dialysis today Given dialysis dependence, and a reduced urine output, careful fluid balance is critical, both prabhu and postoperatively. Next dialysis scheduled for today, we will asses daily for additional need Prosthetic joint infection Underwent extensive debridement and placement of antibiotic spacer, hip prosthesis 06/06/25 without complications Currently prescribed vancomycin and ceftriaxone, monitor Vanco levels Monitor WBC inflammatory markers, and culture Being managed by Ortho and hospitalist team Diabetes type 2 Hyperglycemia/hypoglycemia protocol in place A1c is 5.8 Urine incontinence On PureWick Monitor for skin integrity and signs of UTI Continue current management DVT prophylaxis: SubQ heparin Roshni Najibi Nephrology Resident Date of Service: Jun 09, 2025 Billing Provider: RADHA MCKINNEY III DO ROSHNI GÓMEZ, RES Jun 09, 2025 09:02
[2025-06-09] MEDS: EPOETIN ALFA-EPBX 20,000 UNIT/ML 1 ML MDV IV ONE (11:03)
[2025-06-09] MEDS: heparin 1,000 units/ml 10ml inj HE ONE ×2 (12:09→12:10)
[2025-06-10 06:00] VITALS: BP 112/50; PULSE 81; RESP 15; TEMP 97; O2SAT 94
[2025-06-10 10:00] VITALS: BP 113/51; PULSE 88; RESP 19; TEMP 97.3; O2SAT 97
--- NOTE | 2025-06-10 14:34 | PROGRESS NOTE- Residence ---
Progress Note - Resident Providers to CC Resident Creating Document: ROSHNI CROCKETT RES ~ Antibiotic Timeout Antibiotic Ordered?: Yes Subjective The patient was seen at bedside today with her cousin present during the exam. She expressed concern about returning to her prior facility ([facility]), stating that her condition 10s to worsened with each stay there. She specifically mentioned dysarthric fraction regarding the development of bedsores. Otherwise, the patient is clinically stable with no new complaints. She is scheduled for HD tomorrow. Disposition will be determined by the primary medical team and coordination with the orthopedic team. Objective Vital Signs Date Time Temp Pulse Resp B/P (MAP) Pulse Ox O2 Delivery O2 Flow Rate FiO2 06/10/25 10:00 97.3 88 19 113/51 (71) 97 Room Air 06/10/25 07:00 2.0 06/08/25 19:00 28 General: Awake and Alert, no acute distress. Resp: Unlabored. Lungs clear to auscultation bilaterally. Heart: Regular Rate and rhythm, normal S1 and S2 without murmur, rub or gallop. Abdomen: Soft and non tender no organomegaly Extremities: 1+ edema. Skin: Warm and Dry. Result Diagram: 06/09/2552806/09/25528 Advance Care Planning Advanced Care plannin - 30 Minutes Assessment Assessment This is a 75-year-old female with longstanding DM II diagnosed at age 36, ARIELLA on nighttime BiPAP, and multiple orthopedic procedures including right hip arthroplasty with several revisions due to recurrent dislocations. She was admitted to [facility] on March 25, 2025, with sepsis secondary to a suspected prosthetic joint infection. She underwent extensive debridement and removal of the infected prosthesis with of antibiotic spacers. During that hospitalization, she developed acute kidney injury with progressive rise in creatinine and was initiated on hemodialysis. Plan Plan End-stage renal disease On hemodialysis; Monday and Monday schedule Developed SAMIRA during prior hospitalization for septic arthritis and has since been receiving iHD Monitor for signs of volume overload or uremia postoperatively, no indication for dialysis today Given dialysis dependence, and a reduced urine output, careful fluid balance is critical, both prabhu and postoperatively. Next dialysis scheduled for tomorrow morning, orders in place. H/O Prosthetic joint infection Underwent extensive debridement and placement of antibiotic spacer, hip S/P revision prosthetic joint by Dr. Hope 06/06/25 prosthesis 06/06/25 without complications On vancomycin and ceftriaxone, Monitor WBC inflammatory markers, and culture Being managed by Ortho and hospitalist team Diabetes type 2 Hyperglycemia/hypoglycemia protocol in place A1c is 5.8 Urine incontinence On PureWick Monitor for skin integrity and signs of UTI Continue current management DVT prophylaxis: SubQ heparin Roshni Crockett Nephrology Resident Date of Service: Jun 10, 2025 Billing Provider: RADHA MCKINNEY III, SHAMS, RES Jun 10, 2025 14:34
--- NOTE | 2025-06-10 15:58 | PROGRESS NOTE ---
Daily Progress Note Providers to CC ~ Antibiotic Timeout Antibiotic Ordered?: Yes Subjective No new complaints, Objective Vital Signs Date Time Temp Pulse Resp B/P (MAP) Pulse Ox O2 Delivery O2 Flow Rate FiO2 06/10/25 10:00 97.3 88 19 113/51 (71) 97 Room Air 06/10/25 07:00 2.0 06/08/25 19:00 28 Result Diagram: 06/09/2552806/09/25528 Gen. awake alert oriented asymptomatic HEENT: Normocephalic, atraumatic, extraocular movements are intact, sclera anicteric, conjunctiva pinkish, moist oral mucosa, no rash or ulcers. NECK: Supple, no JVD, trachea midline. CHEST: Clear to auscultation, no wheezes crackles or rhonchi. TDC in the right side of the chest HEART: Regular rate rhythm, no murmur gallop or rub. ABDOMEN: Soft, nontender, no organomegaly. EXTREMITIES: No cyanosis clubbing or edema. NEURO EXAM: Grossly nonfocal. MUSCULOSKELETAL : Limited movement of the right hip. Patient noted to have Hemovacc SKIN: No rash or ulcers noted. 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 Patient underwent incision, drainage removal of the displaced and dislocated acetabular component and placement of antibiotic beads and Hemovac drain. Continue IV vancomycin and IV Rocephin. ID, consulted Dr. Shafer. Await input . # Permanent atrial fibrillation: Anticoagulation on hold due to her recent surgery . Resume per ortho. # End-stage renal disease, on hemodialysis ,Being followed by Dr. Phillip # Qet-laedhfp-wpztumudb diabetes mellitus: hyper and hypoglycemic protocol # Chronic COPD not in acute exacerbation: Inhaled bronchodilators as needed # Chronic respiratory failure on 3 L oxygen at baseline # Anemia likely of chronic disease : Monitor H/H # Disposition: SNF when available . Per case management, patient will need gurney transport back and forth for her hemodialysis from the alf facility which is a [facility] her discharge. Sepsis Screening Skin Color: Normal Date of Service: Jun 10, 2025 Billing Provider: FRITZ LOPEZ MD Common Visit Codes: [id number] INP/OBS CARE(HIGH) FRITZ LOPEZ MD Jun 10, 2025 15:58
[2025-06-10 18:00] VITALS: BP 116/52; PULSE 96; RESP 16; TEMP 97.7; O2SAT 98
[2025-06-10 19:45] VITALS: RESP 16; O2SAT 98
[2025-06-10 22:00] VITALS: BP 110/65; PULSE 71; RESP 14; TEMP 96.1; O2SAT 99
[2025-06-11] VITALS (16 sets, daily range): BP systolic 108–148; BP diastolic 43–72; PULSE 82–98; RESP 14–23; TEMP 97.1–98; O2SAT 91–100
[2025-06-11] MEDS: heparin 1,000 units/ml 10ml inj HE ONE ×2 (06:40)
--- NOTE | 2025-06-11 08:50 | PROGRESS NOTE ---
Progress Note Dictate Providers to CC ~ Subjective Subjective: She is known to me from prior hospitalization as well as clinic. She has an antibiotic spacer in place at the right hip. She came in with evidence of dislocation involving the acetabular component. She did go back to the operating room with Dr. Hope. He noted that there was no evidence of infection. She was recently at [facility]. She does not want to go back to that facility. When I saw her in clinic, she was on linezolid after completing a course of daptomycin. I transitioned her to doxycycline for long- term suppression. She remains on dialysis. Objective Objective: Pleasant elderly female currently lying in bed looking stable Neck with right tunneled dialysis catheter Lungs clear to auscultation bilaterally Heart irregularly irregular Abdomen obese and soft Extremities with bandage at right hip Lab Results: 06/09/25 0529 06/09/25 0529 Problem\Assessment\Plan Additional Plan 1. 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 She developed dislocation related to acetabular component requiring another operation. No evidence of infection at that time. 2. Acute renal failure, still on hemodialysis DC vancomycin Restart doxycycline 100 mg twice daily for chronic suppression Rehab placement She can follow up with me in clinic MARTI MORSE MD Jun 11, 2025 08:50
[2025-06-11 09:16] LABS: MEAN PLATELET VOLUME 8.3 FL (7.4-10.4); RED CELL DISTRIBUTION WIDTH 25.9 % (11.5-14.5)
[2025-06-11 09:33] LABS: CREATININE 0.88 MG/DL (0.40-0.90); TOTAL CARBON DIOXIDE 28.1 MMOL/L (24-32); eCRCL 56 ML/MIN; eGFR 62 ML/MIN
[2025-06-11 09:44] LABS: PLATELET ESTIMATE NORMAL
[2025-06-11] MEDS: NUT.TX.IMP.RENAL FXN,LAC-REDUC (Nepro) 237 ML VANILLA PO SCH (14:15)
[2025-06-11] MEDS: ARGININE/GLUTAMINE/CALCIUM BMB (JUVEN 19.3GM PKT) 1 EACH POWD.PACK PO SCH (14:15)
--- NOTE | 2025-06-11 15:27 | PROGRESS NOTE- Residence ---
Progress Note - Resident Providers to CC Resident Creating Document: ROSHNI CROCKETT RES ~ Antibiotic Timeout Antibiotic Ordered?: Yes Subjective The patient was seen at bedside today with her cousin present during the exam. Underwent HD today (2 L out). Creatinine normalized, however, she only produced 250 ml of urine. She will be going to [facility] over the weekend. We will continue to follow. Objective Vital Signs Date Time Temp Pulse Resp B/P (MAP) Pulse Ox O2 Delivery O2 Flow Rate FiO2 06/11/25 07:00 Nasal Cannula 2.0 06/11/25 07:00 97.6 95 19 119/63 (81) 95 06/11/25 06:00 21 General: Awake and Alert, no acute distress. Resp: Unlabored. Lungs clear to auscultation bilaterally. Heart: Regular Rate and rhythm, normal S1 and S2 without murmur, rub or gallop. Abdomen: Soft and non tender no organomegaly Extremities: 1+ edema. Skin: Warm and Dry Result Diagram: 06/11/2584106/11/25841 Advance Care Planning Advanced Care plannin - 30 Minutes Assessment Assessment This is a 75-year-old female with longstanding DM II diagnosed at age 36, ARIELLA on nighttime BiPAP, and multiple orthopedic procedures including right hip arthroplasty with several revisions due to recurrent dislocations. She was admitted to [facility] on March 25, 2025, with sepsis secondary to a suspected prosthetic joint infection. She underwent extensive debridement and removal of the infected prosthesis with of antibiotic spacers. During that hospitalization, she developed acute kidney injury with progressive rise in creatinine and was initiated on hemodialysis. Plan Plan End-stage renal disease On hemodialysis; Monday and Monday schedule Developed SAMIRA during prior hospitalization for septic arthritis and has since been receiving iHD Monitor for signs of volume overload or uremia postoperatively, no indication for dialysis today Given dialysis dependence, and a reduced urine output, careful fluid balance is critical, both prabhu and postoperatively. Undergone HD today, next on Monday. Cr improved, UOP still 250 ml H/O Prosthetic joint infection Underwent extensive debridement and placement of antibiotic spacer, hip S/P revision prosthetic joint by Dr. Hope 06/06/25 prosthesis 06/06/25 without complications On vancomycin and ceftriaxone, Monitor WBC inflammatory markers, and culture Being managed by Ortho and hospitalist team Diabetes type 2 Hyperglycemia/hypoglycemia protocol in place A1c is 5.8 Urine incontinence On PureWick Monitor for skin integrity and signs of UTI Continue current management DVT prophylaxis: SubQ heparin Roshni Crockett Nephrology Resident Date of Service: Jun 11, 2025 Billing Provider: RADHA MCKINNEY III DO ROSHNI CROCKETT, RES Jun 11, 2025 15:27
--- NOTE | 2025-06-11 15:37 | PROGRESS NOTE ---
Daily Progress Note Providers to CC ~ Antibiotic Timeout Antibiotic Ordered?: Yes Subjective Patient has no new complaints. Objective Vital Signs Date Time Temp Pulse Resp B/P (MAP) Pulse Ox O2 Delivery O2 Flow Rate FiO2 06/11/25 07:00 Nasal Cannula 2.0 06/11/25 07:00 97.6 95 19 119/63 (81) 95 06/11/25 06:00 21 Result Diagram: 06/11/25 0842 06/11/25 0842 Gen. awake alert oriented asymptomatic HEENT: Normocephalic, atraumatic, extraocular movements are intact, sclera anicteric, conjunctiva pinkish, moist oral mucosa, no rash or ulcers. NECK: Supple, no JVD, trachea midline. CHEST: Clear to auscultation, no wheezes crackles or rhonchi. TDC in the right side of the chest HEART: Regular rate rhythm, no murmur gallop or rub. ABDOMEN: Soft, nontender, no organomegaly. EXTREMITIES: No cyanosis clubbing or edema. NEURO EXAM: Grossly nonfocal. MUSCULOSKELETAL : Limited movement of the right hip. SKIN: No rash or ulcers noted. Other Results Medications reviewed. Problem\Assessment\Plan Problems/Diagnosis: (1) Septic joint # Septic right hip joint :Patient has had a prior arthroplasty with multiple revisions an antibiotic spacer was placed. Patient underwent incision, drainage removal of the displaced and dislocated acetabular component and placement of antibiotic beads and Hemovac drain. Continue IV vancomycin and IV Rocephin. ID, consulted Dr. Shafer. We will continue antibiotics as per his recommendations. # Permanent atrial fibrillation: Anticoagulation on hold due to her recent surgery . Resume per ortho. # End-stage renal disease, on hemodialysis ,Being followed by Dr. Phillip # Qqx-ygrwybh-siuuwolgl diabetes mellitus: hyper and hypoglycemic protocol # Chronic COPD not in acute exacerbation: Inhaled bronchodilators as needed # Chronic respiratory failure on 3 L oxygen at baseline # Anemia likely of chronic disease : Monitor H/H # Disposition: SNF when available . Per case management, patient will need gurney transport back and forth for her hemodialysis from the care home facility which is a barrier to her discharge. Sepsis Screening Skin Color: Normal Date of Service: Jun 11, 2025 Billing Provider: FRITZ LOPEZ MD Common Visit Codes: [id number] INP/OBS CARE(HIGH) FRITZ LOPEZ MD Jun 11, 2025 15:37
[2025-06-11] MEDS ORDERED: magnesium sulf-water 2g/50mL 50 ML IV PRN (15:50)
[2025-06-11] MEDS ORDERED: magnesium sulf-water 4G/100mL 100 ML IV PRN (15:50)
[2025-06-11] MEDS ORDERED: potassium Cl 20 mEq SR tablet PO PRN ×2 (15:50)
[2025-06-11] MEDS ORDERED: potassium Cl 40MEQ/1/2NS 520ml 520 ML IV PRN (15:50)
[2025-06-11] MEDS: DOXYCYCLINE 100MG CAPSULE PO SCH (18:07)
[2025-06-11] MEDS: VANCOMYCIN LEVEL IV ONE (21:30)
[2025-06-12] VITALS (7 sets, daily range): BP systolic 115–164; BP diastolic 58–81; PULSE 86–100; RESP 12–29; TEMP 96.8–97.5; O2SAT 91–100
[2025-06-12] MEDS: JUVEN Smoothie Arginine/Glut./Ca2+Bmb (Juven 19.3pkt) 240ml cup PO SCH (07:31)
--- NOTE | 2025-06-12 13:38 | PROGRESS NOTE ---
Daily Progress Note Providers to CC ~ Antibiotic Timeout Antibiotic Ordered?: Yes Subjective Reports feeling better today, states ' they were messing up with my hip again' Objective Vital Signs Date Time Temp Pulse Resp B/P (MAP) Pulse Ox O2 Delivery O2 Flow Rate FiO2 06/12/25 11:30 97.1 100 20 124/59 (80) 94 06/12/25 08:14 Room Air 06/12/25 07:45 2.0 28 Result Diagram: 06/11/25 0842 06/11/25 0842 Gen. awake alert oriented asymptomatic HEENT: Normocephalic, atraumatic, extraocular movements are intact, sclera anicteric, conjunctiva pinkish, moist oral mucosa, no rash or ulcers. NECK: Supple, no JVD, trachea midline. CHEST: Clear to auscultation, no wheezes crackles or rhonchi. TDC in the right side of the chest HEART: Regular rate rhythm, no murmur gallop or rub. ABDOMEN: Soft, nontender, no organomegaly. EXTREMITIES: No cyanosis clubbing or edema. NEURO EXAM: Grossly nonfocal. MUSCULOSKELETAL : Limited movement of the right hip. Hemovacc has been removed. SKIN: No rash or ulcers noted. 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 Patient underwent incision, drainage removal of the displaced and dislocated acetabular component and placement of antibiotic beads and Hemovac drain which has been removed . ID, consulted Dr. Shafer. We will continue antibiotics as per his recommendations. # Permanent atrial fibrillation: Anticoagulation on hold due to her recent surgery . Resume per ortho. I have reached out to Dr. Hope and left a message for him. Awaiting a call back. # End-stage renal disease, on hemodialysis ,Being followed by Dr. Phillip # Jwg-jpwdphj-ykdzgrvjt diabetes mellitus: hyper and hypoglycemic protocol # Chronic COPD not in acute exacerbation: Inhaled bronchodilators as needed # Chronic respiratory failure on 3 L oxygen at baseline # Anemia likely of chronic disease : Monitor H/H # Disposition: SNF when available . Per case management, patient will need gurney transport back and forth for her hemodialysis from the custodial facility which is a barrier to her discharge. Patient has now been accepted at LTAC and to be discharged in am Sepsis Screening Skin Color: Normal Date of Service: Jun 12, 2025 Billing Provider: FRITZ LOPEZ MD Common Visit Codes: [id number] INP/OBS CARE(HIGH) FRITZ LOPEZ MD Jun 12, 2025 13:37
[2025-06-12 14:05] LABS: CREATININE 1.40 MG/DL (0.40-0.90); TOTAL CARBON DIOXIDE 30.8 MMOL/L (24-32); eCRCL 35 ML/MIN; eGFR 36 ML/MIN
--- NOTE | 2025-06-12 14:29 | PROGRESS NOTE- Residence ---
Progress Note - Resident Providers to CC Resident Creating Document: ROSHNI CROCKETT RES ~ Antibiotic Timeout Antibiotic Ordered?: Yes Subjective Mrs Sr has a history of longstanding diabetes and was initially admitted in March for sepsis related to a prosthetic joint infection, during which she developed SAMIRA and was started on hemodialysis. She underwent right hip revision surgery on June 06 during this admission. She remains dialysis dependent with a MWF scheduled in continues to produce urine, with recent documented output suggesting some residual kidney function. She completed her most recent dialysis session yesterday, and her next is scheduled for tomorrow. She uses a PureWick for urinary incontinence. Disposition is to [facility] likely on Monday. Objective Vital Signs Date Time Temp Pulse Resp B/P (MAP) Pulse Ox O2 Delivery O2 Flow Rate FiO2 06/12/25 11:30 97.1 100 20 124/59 (80) 94 06/12/25 08:14 Room Air 06/12/25 07:45 2.0 28 General: Awake and Alert, no acute distress. Resp: Unlabored. Lungs clear to auscultation bilaterally. Heart: Regular Rate and rhythm, normal S1 and S2 without murmur, rub or gallop. Abdomen: Soft and non tender no organomegaly Extremities: 1+ edema. Skin: Warm and Dry Result Diagram: 06/11/25 0842 06/12/25 1255 Advance Care Planning Advanced Care plannin - 30 Minutes Assessment Assessment This is a 75-year-old female with longstanding DM II diagnosed at age 36, ARIELLA on nighttime BiPAP, and multiple orthopedic procedures including right hip arthroplasty with several revisions due to recurrent dislocations. She was admitted to [facility] on March 25, 2025, with sepsis secondary to a suspected prosthetic joint infection. She underwent extensive debridement and removal of the infected prosthesis with of antibiotic spacers. During that hospitalization, she developed acute kidney injury with progressive rise in creatinine and was initiated on hemodialysis. Plan Plan End-stage renal disease On hemodialysis; Monday and Monday schedule Developed SAMIRA during prior hospitalization for septic arthritis and has since been receiving iHD Monitor for signs of volume overload or uremia postoperatively, no indication for dialysis today Given dialysis dependence, and a reduced urine output, careful fluid balance is critical, both prabhu and postoperatively. Undergone HD on Monday, next on Monday. Cr improved, UOP 550 ml this morning. H/O Prosthetic joint infection Underwent extensive debridement and placement of antibiotic spacer, hip S/P revision prosthetic joint by Dr. Hope 06/06/25 prosthesis 06/06/25 without complications On vancomycin and ceftriaxone, Monitor WBC inflammatory markers, and culture Being managed by Ortho and hospitalist team Diabetes type 2 Hyperglycemia/hypoglycemia protocol in place A1c is 5.8 Urine incontinence On PureWick Monitor for skin integrity and signs of UTI Continue current management DVT prophylaxis: SubQ heparin Roshni Crockett Nephrology Resident Date of Service: Jun 12, 2025 Billing Provider: RADHA MCKINNEY III DO ROSHNI CROCKETT, RES Jun 12, 2025 14:29
[2025-06-12] MEDS: doxycycline 100mg/NS 100mL PB 100 ML IV SCH (20:44)
[2025-06-13 02:00] VITALS: BP 134/74; PULSE 81; RESP 21; TEMP 96.7; O2SAT 97
[2025-06-13 06:00] VITALS: BP 161/91; PULSE 93; RESP 19; TEMP 96.7; O2SAT 97
[2025-06-13 07:00] VITALS: RESP 19; O2SAT 97
[2025-06-13 11:00] VITALS: BP 117/58; PULSE 89; RESP 12; TEMP 97.2; O2SAT 97
--- NOTE | 2025-06-13 15:15 | DISCHARGE SUMMARY ---
Discharge Summary Providers to CC ~ Discharge Summary Admission Diagnosis: Right hip infection Hospital Course DATE OF ADMISSION: 06/04/2025 DATE OF DISCHARGE: 06/13/2025 Discharge Diagnosis\Comment: Septic right hip joint, permanent atrial fibrillation, end-stage renal disease on hemodialysis, bfj-twsfmat-uvhkjfoan diabetes mellitus, chronic COPD not in acute exacerbation, Operations\Procedures: Incision drainage removal of displaced and dislocated acetabular component this is an antibiotic impregnated acetabular implant debridement placement of a 2nd L poly liner with antibiotic impregnated PMMA with some retention screws this is a constrained component. Placement of antibiotic beads placement of a wound Hemovac drain Consultants: Dr. Chilango Phillip transit proof machine operator, Dr Edvin Singh orthopedic surgeon Complications: None Condition on DC: Stable Discharge Summary: I admitted Ms. South with the following HPI:This is a 75-year-old female who had a proximally one year history of intermittent infections of the right hip- three years ago she has a total hip arthroplasty and since then she has had multiple revisions she was hospitalized here the end of March in the beginning of April with a a hip infection and had a extensive debridement decompression of the abscess and removal of infected hip arthroplasty both femoral and acetabular components and antibiotic spacers were placed. The patient currently is being admitted as per request of orthopedic surgeon Dr. Edvin singh for a revision and removal and replacement of the antibiotic spacers. The patient is on dialysis Monday. Monday, Monday I did communicate with on-call transit proof machine operator Dr. phillip and to coordinate when the patient will get their Monday dialysis treatments. The patient has atrial fibrillation and takes Xarelto for DVT and stroke prophylaxis which will be held for upcoming surgery on Monday. The patient had dialysis during hospitalization though her kidneys have residual function and her creatinine on the was 1.40. The patient went to surgery with Dr. Edvin Singh for an incision drainage removal of displaced and dislodged acetabular component of an antibiotic impinged acetabular implant placement with a 2nd L palsy liner with antibiotic impregnated PMMA on 06/06/2025. The patient is evaluated by Dr. Casey wilkins infectious disease physician who recommended restarting doxycycline 100 mg b.i.d. for chronic suppression The patient has qow-mjtowqa-wswyretvq diabetes mellitus hemoglobin A1c is 5.8 the patient is to continue her home Lantus and fingerstick blood glucose a.c. and HS is ordered. The patient has permanent atrial fibrillation and heart rates controlled parents Xarelto was restarted for DVT and stroke prophylaxis prior to discharge The patient had unremarkable hospitalization however is not safe to go home and we will be transferring to an LTAC. Gen. No acute distress alert and oriented 4 Lungs clear to ascultation bilaterally, no wheezes rales or rhonchi appreciated Heart normal sinus rhythm no murmurs rubs or clicks noted Abdomen soft nontender bowel sounds are normoactive Lower extremities no clubbing cyanosis, nor edema appreciated bilaterally Skin dressing is in place left lateral hip. The patient felt ready to be discharged and was medically cleared to be discharged to an LTAC on 06/13/2025 The patient was seen and evaluated on day of discharge. Time spent on discharge 35 minutes *Problems/Diagnosis: (1) Septic joint Status: Acute Total Time Spent on D/C: > 30 Minutes Date of Service: Jun 13, 2025 Billing Provider: RICKIE PENA DO Common Visit Codes: [id number] DISCH DAY >30min RICKIE PENA DO Jun 13, 2025 14:57
[2025-06-13 15:49] VITALS: BP 125/69; PULSE 86; RESP 13; TEMP 97.3; O2SAT 94
--- NOTE | 2025-06-13 16:48 | PROGRESS NOTE- Residence ---
Progress Note - Resident Providers to CC Resident Creating Document: ROSHNI CROCKETT RES ~ Antibiotic Timeout Antibiotic Ordered?: Yes Subjective Her kidney function has significantly improved. Patient is producing adequate urine output 1.8 later today. Given improved renal function and sustained urine output, dialysis will be held today despite being previously scheduled. We will continue to closely follow renal function and urine output and we will reassess daily to determine if further dialysis is required. Cautiously optimistic for continued renal recovery. Objective Vital Signs Date Time Temp Pulse Resp B/P (MAP) Pulse Ox O2 Delivery O2 Flow Rate FiO2 06/13/25 15:49 97.3 86 13 125/69 (87) 94 06/13/25 11:00 Room Air 06/12/25 07:45 2.0 28 General: Awake and Alert, no acute distress. Resp: Unlabored. Lungs clear to auscultation bilaterally. Heart: Regular Rate and rhythm, normal S1 and S2 without murmur, rub or gallop. Abdomen: Soft and non tender no organomegaly Extremities: 1+ edema. Skin: Warm and Dry Result Diagram: 06/11/25 0842 06/12/25 1255 Advance Care Planning Advanced Care plannin - 30 Minutes Assessment Assessment This is a 75-year-old female with longstanding DM II diagnosed at age 36, ARIELLA on nighttime BiPAP, and multiple orthopedic procedures including right hip arthroplasty with several revisions due to recurrent dislocations. She was admitted to [facility] on March 25, 2025, with sepsis secondary to a suspected prosthetic joint infection. She underwent extensive debridement and removal of the infected prosthesis with of antibiotic spacers. During that hospitalization, she developed acute kidney injury with progressive rise in creatinine and was initiated on hemodialysis. Mrs Sr has a history of longstanding diabetes and was initially admitted in March for sepsis related to a prosthetic joint infection, during which she developed SAMIRA and was started on hemodialysis. She underwent right hip revision surgery on June 06 during this admission. She remains dialysis dependent with a MWF scheduled in continues to produce urine, with recent documented output suggesting some residual kidney function. She completed her most recent dialysis session yesterday, and her next is scheduled for tomorrow. She uses a PureWick for urinary incontinence. Disposition is to [facility] likely on Monday. Plan Plan SAMIRA on hemodialysis - due to ischemic ATn from septic shock - ? recovering On hemodialysis; Monday and Monday schedule - held temporarily to see how she responds. Developed SAMIRA during prior hospitalization for septic arthritis and has since been receiving iHD Monitor for signs of volume overload or uremia postoperatively, no indication for dialysis today Given dialysis dependence, and a reduced urine output, careful fluid balance is critical, both prabhu and postoperatively. - monitor current catheter for ongoing monitoring - continue to closely follow renal function and urine output - reassess daily to determine if further dialysis is required. Optimistic for continued renal recovery H/O Prosthetic joint infection Underwent extensive debridement and placement of antibiotic spacer, hip S/P revision prosthetic joint by Dr. Hope 06/06/25 prosthesis 06/06/25 without complications On vancomycin and ceftriaxone, Monitor WBC inflammatory markers, and culture Being managed by Ortho and hospitalist team Diabetes type 2 Hyperglycemia/hypoglycemia protocol in place A1c is 5.8 Urine incontinence On PureWick Monitor for skin integrity and signs of UTI Continue current management DVT prophylaxis: SubQ heparin Roshni Crockett Nephrology Resident Nephrology attending: The patient went on dialysis due to ischemic ATn from septic shock. patient seen and examined. No edema. I think she is strting to recovver. will temporarily hold the dialyiss and see how she does. If she goes to [facility], we can follow her there and decide. Juan Curry MD Date of Service: Jun 13, 2025 Billing Provider: JUAN CURRY MD, SHAMS, RES Jun 13, 2025 16:48 JUAN CURRY MD Jun 13, 2025 18:53
== END 2025-06-13 17:55 | DRG 466 ==
LOC: PAS IN 13:41 → ORTHO 4S 18:45 → PCU 3S 06-10 23:57
PROVIDERS: ADMIT Orthopaedic Surgery; ATTEND Orthopaedic Surgery
PROC: 0SPA0JZ Removal of Synthetic Substitute from Right Hip Joint, Acetabular Surface, Open Approach (ICD-10-PCS; 2025-06-06)
PROC: 0QS604Z Reposition Right Upper Femur with Internal Fixation Device, Open Approach (ICD-10-PCS; 2025-06-06)
PROC: 0SUA09Z Supplement Right Hip Joint, Acetabular Surface with Liner, Open Approach (ICD-10-PCS; 2025-06-06)
PROC: 5A1D70Z Performance of Urinary Filtration, Intermittent, Less than 6 Hours Per Day (ICD-10-PCS; 2025-06-06)
PROC: 3E0U029 Introduction of Other Anti-infective into Joints, Open Approach (ICD-10-PCS; 2025-06-06)
PROC: 0SR Lower Joints, Replacement (ICD-10-PCS; principal; 2025-06-06 10:08)
PROC: 5A09357 Assistance with Respiratory Ventilation, Less than 24 Consecutive Hours, Continuous Positive Airway Pressure (ICD-10-PCS; 2025-06-08)
PROC: 5A1D70Z Performance of Urinary Filtration, Intermittent, Less than 6 Hours Per Day (ICD-10-PCS; 2025-06-09)
PROC: 05HB33Z Insertion of Infusion Device into Right Basilic Vein, Percutaneous Approach (ICD-10-PCS; 2025-06-10)
PROC: B54MZZA Ultrasonography of Right Upper Extremity Veins, Guidance (ICD-10-PCS; 2025-06-10)
PROC: 5A09357 Assistance with Respiratory Ventilation, Less than 24 Consecutive Hours, Continuous Positive Airway Pressure (ICD-10-PCS; 2025-06-11)
PROC: 5A1D70Z Performance of Urinary Filtration, Intermittent, Less than 6 Hours Per Day (ICD-10-PCS; 2025-06-11)
PROC: 5A09357 Assistance with Respiratory Ventilation, Less than 24 Consecutive Hours, Continuous Positive Airway Pressure (ICD-10-PCS; 2025-06-12)
PROC: 5A09357 Assistance with Respiratory Ventilation, Less than 24 Consecutive Hours, Continuous Positive Airway Pressure (ICD-10-PCS; 2025-06-13)
DX: T84.51XA Infection and inflammatory reaction due to internal right hip prosthesis, initial encounter (principal); N17.0 Acute kidney failure with tubular necrosis; N18.6 End stage renal disease; I48.21 Permanent atrial fibrillation; J96.10 Chronic respiratory failure, unspecified whether with hypoxia or hypercapnia; M00.851 Arthritis due to other bacteria, right hip; T84.020A Dislocation of internal right hip prosthesis, initial encounter; E11.22 Type 2 diabetes mellitus with diabetic chronic kidney disease; J44.9 Chronic obstructive pulmonary disease, unspecified; Z96.611 Presence of right artificial shoulder joint; Y83.8 Other surgical procedures as the cause of abnormal reaction of the patient, or of later complication, without mention of misadventure at the time of the procedure; G47.33 Obstructive sleep apnea (adult) (pediatric); N39.498 Other specified urinary incontinence; Z88.8 Allergy status to other drugs, medicaments and biological substances; Z99.2 Dependence on renal dialysis; Z88.2 Allergy status to sulfonamides; Z79.01 Long term (current) use of anticoagulants; Z88.5 Allergy status to narcotic agent; Z79.899 Other long term (current) drug therapy; Z79.4 Long term (current) use of insulin; Z82.49 Family history of ischemic heart disease and other diseases of the circulatory system; Z79.84 Long term (current) use of oral hypoglycemic drugs; Y92.89 Other specified places as the place of occurrence of the external cause
CPT/HCPCS: 36410; 36415; 72170; 73501; 76937; 80047; 80053; 80202; 82948; 83036; 83735; 84100; 85008; 85025; 86885; 86900; 86901; 86920; 87070; 87075; 87081; 87340; 97110; 97162; 97530; A4215; A4615; A4618; A6212; A6213; A6250; A6253; A6258; A6449; A7000; C1713; C1751; C1758; C1776; C9250; E1594; G0257; G0378; J0696; J1171; J1271; J1644; J1815; J2250; J2270; J2704; J3010; J3260; J3373; J3375; J3490; J7030; J7040; J7050; J7070; J7120; P9045; Q4081